=== PATIENT | male | born 1970 | race Caucasian/White ===

== ENCOUNTER 2019-03-22 21:37 | Emergency (ER) ==
[2019-03-22 21:41] VITALS: BP 134/84; TEMP 97.8; BMI 22.1
--- NOTE | 2019-03-22 22:00 | ED.PDOC ---
General ED Provider: Dr. EVELYN PHAN Chief Complaint: Chest Pain Stated Complaint: 48 y old with an epigastric central discomfort. ,Concerned about chect pain possibility,It is also pressure marco antonio.Nonm radiating,. Patient states it stared 5 days ago,No distress,Normal VS and perfusionmlungs and rhythm =No rub or murmur. Time Seen by Physician: 21:45 Mode of Arrival: Walk-In Information Source: Patient, Family Exam Limitations: No limitations Nursing and Triage Documentation Reviewed and Agree: Yes Does patient meet sepsis criteria?: No System Inflammatory Response Syndrome: Not Applicable Sepsis Protocol: For patient's 13 years and over: Temp is 96.8 and below OR 101 and greater Pulse >90 BPM Resp >20/minute Acutely Altered Mental Status Are patient's symptoms suggestive of a new infection, such as: -Pneumonia -Skin, Soft Tissue -Endocarditis -UTI -Bone, Joint Infection -Implantable Device -Acute Abdominal Infection -Wound Infection -Meningitis -Blood Stream Catheter Infection -Unknown Cardiovascular Complaint Exam - Chest Pain Complaint/Exam Onset: Gradual Duration: since 5 days Symptoms Are: Still present Timing: Intermittent Initial Severity: Mild Current Severity: Mild Location: Reports: Lower sternal Pain Radiates: Reports: None Character: Reports: Aching Aggravating: Reports: None Alleviating: Reports: Rest Associated Signs and Symptoms: Reports: Abdominal pain Related History: Reports: Similar episode Related Surgical History: Reports: None History of Healthcare-Acquired Pneumonia: Reports: No AMI/ACS Risk Factors: Reports: Hypertension TAD Risk Factors: Reports: Hypertension Pulmonary Embolism Risk Factors: Reports: None Prior Care for this Complaint: No Recent Stress Test: No Recent Echo/LV Function: No Subcutaneous Emphysema Present: No Diminshed Breath Sounds: No Reproducible Chest Wall Pain: No Bilateral Pulses Present: No Unequal Pulses Noted: No If Risk Factors for AMI/ACS Consider: EKG, Cardiac Enzymes Differential Diagnoses: Stable Angina, Unstable Angina, Chest Wall Pain, GI Diseasae, Other Review of Systems - Review Of Systems Constitutional: Reports: No symptoms Eyes: Reports: No symptoms Ears, Nose, Mouth, Throat: Reports: No symptoms Respiratory: Reports: No symptoms Cardiac: Reports: Chest pain GI: Reports: Abdominal pain : Reports: No symptoms Musculoskeletal: Reports: No symptoms Skin: Reports: No symptoms Neurological: Reports: No symptoms Endocrine: Reports: No symptoms Hematologic/Lymphatic: Reports: No symptoms All Other Systems: Reviewed and Negative Past Medical History - Past Medical History Previously Healthy: Yes Endocrine: Reports: None Cardiovascular: Reports: None Respiratory: Reports: None Hematological: Reports: None Gastrointestinal: Reports: None Genitourinary: Reports: None Neuro/Psych: Reports: None Musculoskeletal: Reports: None Cancer: Reports: None - Surgical History General Surgical History: Reports: None - Family History Family History: Reports: None - Social History Smoking Status: Never smoker Hx Substance Use: No Alcohol Screening: None - Immunizations Tetanus Shot up to Date: Yes Physical Exam - Physical Exam Appearance: Well-appearing Eyes: EOMI, Conjunctiva pale ENT: Ears normal, Nose normal, Oropharynx normal Neck: Supple Respiratory: Airway patent Cardiovascular: RRR GI/: Soft, Nontender Musculoskeletal: Normal strength Skin: Warm, Dry Neurological: Sensation intact, Alert, Oriented Psychiatric: Affect appropriate Critical Care Note - Critical Care Note Total Time (mins): 0 Course - Course Hematology/Chemistry: 03/22/19 22:11 03/22/19 22:11 Orders, Labs, Meds: Lab Review 03/22/19 03/22/19 22:11 22:11 WBC 4.96 RBC 4.54 L Hgb 13.9 L Hct 39.3 L MCV 86.6 MCH 30.6 MCHC 35.4 RDW Coeff of Braxton 12.1 Plt Count 160 Immature Gran % (Auto) 0.2 Neut % (Auto) 54.0 Lymph % (Auto) 36.5 [place] % (Auto) 7.1 Eos % (Auto) 1.2 Baso % (Auto) 1.0 Immature Gran # (Auto) 0.0 Neut # (Auto) 2.7 Lymph # (Auto) 1.8 [place] # (Auto) 0.4 Eos # (Auto) 0.1 Baso # (Auto) 0.1 Sodium 139.2 Potassium 3.54 Chloride 101.5 Carbon Dioxide 28.4 Anion Gap 12.84 BUN 20.6 H Creatinine 0.82 Estimated GFR (MDRD) 101.00 BUN/Creatinine Ratio 25.12 Glucose 107.3 H Calcium 9.28 Total Bilirubin 0.71 AST 25.1 ALT 17.6 Alkaline Phosphatase 73.9 Total Creatine Kinase 71.6 Troponin I < 0.012 Total Protein 6.86 Albumin 4.46 Globulin 2.40 Albumin/Globulin Ratio 1.85 Orders Category Date Time Status EKG-(ED ONLY) Stat CARDIO 03/22/19 22:01 Ordered CBC W/ AUTO DIFF Stat LAB 03/22/19 22:11 Completed COMPREHENSIVE METABOLIC PANEL Stat LAB 03/22/19 22:11 Completed CREATINE KINASE Stat LAB 03/22/19 22:11 Completed TROPONIN I Stat LAB 03/22/19 22:11 Completed CHEST, 1V AP ONLY Stat RADS 03/22/19 22:01 Completed Vital Signs: Temp Pulse Resp BP Pulse Ox 03/22/19 21:38 97.8 F 67 20 134/84 99 SABAS Risk Score SABAS Risk Score: Risk Score Odds of by 30D 0 0.1 (0.1-0.2) 1 0.3 (0.2-0.3) 2 0.4 (0.3-0.5) 3 0.7 (0.6-0.9) 4 1.2 (1.0-1.5) 5 2.2 (1.9-2.6) 6 3.0 (2.5-3.6) 7 4.8 (3.8-6.1) Departure - Departure Time of Disposition: 00:16 Disposition: HOME SELF-CARE Discharge Problem: Chest discomfort Instructions: Epigastric Pain (ED) Condition: Good Pt referred to PMD for follow-up: Yes IPMP verified?: No Additional Instructions: Patient adviced to seek GI or GIM vcare for workuo of potential H,pylori,sprue or XII itis/ulcer,diet and efluix/not manifestewd;. Allergies/Adverse Reactions: Allergies No Known Allergies Allergy (Unverified 03/22/19 21:42) Home Medications: Ambulatory Orders 1 [No Reported Medications] 03/22/19 Disposition Discussed With: Patient, Family
--- NOTE | 2019-03-22 22:55 | DI ---
EXAM: AP single view of the chest. HISTORY: Chest pain. FINDINGS: The bones are unremarkable. The cardiac silhouette and pulmonary vasculature are within no rmal limits. The costophrenic angles are clear. No infiltrate or consolidation. Impression: No acute cardiopulmonary disease.
== END 2019-03-23 00:20 | disposition home or self-care (01) ==
LOC: ED 21:37
DX: R07.9 Chest pain, unspecified (principal); R10.9 Unspecified abdominal pain
CPT/HCPCS: 36415; 80053; 82550; 84484; 85025; 93005; 93010; 99283